=== PATIENT | male | born 1990 | race African-American/Black ===

== ENCOUNTER → 2023-03-13 | Outpatient (REF) ==
[2023-03-14 05:07] LABS: HERPES ZOSTER, VARICELLA IgG >4000 index (Immune >165)
== END ==
LOC: M LAB 11:36
PROVIDERS: ATTEND Nurse Practitioner Adult Health
DX: Z00.00 Encounter for general adult medical examination without abnormal findings (principal)

== ENCOUNTER → 2023-03-14 | Outpatient (REF) | LOC: M LAB 15:03 | PROVIDERS: ATTEND Nurse Practitioner Adult Health | DX: Z00.00 Encounter for general adult medical examination without abnormal findings (principal) ==